=== PATIENT | male | born 1970 | race Two or more races ===

== ENCOUNTER 2025-01-10 10:59 | Day surgery (SDC) | payer MEDICAID ==
[~2025-01-10] VITALS: Ht 170.2 cm; Wt 81.8 kg
[~2025-01-10 10:59] MED LIST: LISI10TA27 PO; PARO-154 PO
[2025-01-10] MEDS ORDERED: MULT-1085 PO (12:13)
[2025-01-10] MEDS ORDERED: FLO0.4C (12:13)
[2025-01-10] MEDS ORDERED: DUTA0.5C36 (12:13)
[2025-01-10] MEDS ORDERED: DEXT350P (12:14)
[2025-01-10 12:15] VITALS: BP 125/70; PULSE 67; RESP 14
[2025-01-10] MEDS ORDERED: OMEG1CAP46 PO (12:15)
[2025-01-10] MEDS ORDERED: fentaNYL/PF 50MCG/1 ML 2ML syringe ONE (12:54)
[2025-01-10] MEDS ORDERED: propofol 10mg/ml 20ml vial IV ONE (12:59)
[2025-01-10] MEDS ORDERED: ePHEDrine 50MG/ML INJ. ONE (13:14)
[2025-01-10 13:25] VITALS: BP 102/44; PULSE 70; RESP 16; O2SAT 95
[2025-01-10 13:35] VITALS: BP 106/70; PULSE 76; RESP 17; O2SAT 98
[2025-01-10 13:45] VITALS: BP 119/66; PULSE 68; RESP 19; O2SAT 99
[2025-01-10 13:55] VITALS: BP 116/68; PULSE 66; RESP 16; O2SAT 99
== END 2025-01-10 14:10 | disposition home or self-care (01) ==
LOC: GI LAB 10:59
PROVIDERS: ATTEND Internal Medicine Gastroenterology
DX: Z12.11 Encounter for screening for malignant neoplasm of colon (principal); D12.2 Benign neoplasm of ascending colon; K57.30 Diverticulosis of large intestine without perforation or abscess without bleeding; K64.8 Other hemorrhoids; I10 Essential (primary) hypertension; Z90.49 Acquired absence of other specified parts of digestive tract; Z98.890 Other specified postprocedural states; Z79.899 Other long term (current) drug therapy
CPT/HCPCS: 45385; J2704; J3010; J3490; J7030; Z7512; A4620; C1889